=== PATIENT | male | born 1975 | race Asian ===

== ENCOUNTER 2016-12-29 16:19 | Emergency (ER) | payer MEDICAID, OTHER ==
[~2016-12-29] VITALS: Ht 177.8 cm; Wt 108.9 kg
[2016-12-29 16:19] VITALS: BP_SYST 154
[2016-12-29] MEDS ORDERED: MORPHINE 2 MG/ML INJ. SYRINGE IVP ONE ×4 (16:30→18:00)
[2016-12-29] MEDS ORDERED: NACL 0.9% 1,000 ML IV ONE (16:30)
[2016-12-29] MEDS ORDERED: DIPH-TET-PERTUS Vaccine 0.5 ML VIAL (ADACEL) I.M. ONE (18:00)
[2016-12-29] MEDS ORDERED: CLINDAMYCIN 600 mg/50mL D5W 50 ML IV ONE (18:00)
[2016-12-29] MEDS ORDERED: BACITRACIN ZINC 15 GM TOPICAL OINTMENT TP ONE (18:15)
[2016-12-29] MEDS ORDERED: BACITRACIN 1 GM OINT TP ONE (18:29)
[2016-12-29 20:17] VITALS: BP_SYST 139
== END 2016-12-29 20:17 | disposition home or self-care (01) ==
LOC: SED 16:19
DX: T21.24XA Burn of second degree of lower back, initial encounter (principal); T22.211A Burn of second degree of right forearm, initial encounter; T31.0 Burns involving less than 10% of body surface; I10 Essential (primary) hypertension; X08.8XXA Exposure to other specified smoke, fire and flames, initial encounter; Y93.89 Activity, other specified; Y92.89 Other specified places as the place of occurrence of the external cause; Y99.0 Civilian activity done for income or pay
CPT/HCPCS: 16020; 90471; 90715; 96361; 96365; 96375; 96376; 99284; J2270; J3490; J7030

== ENCOUNTER 2018-03-28 12:32 | Emergency (ER) | payer OTHER ==
[~2018-03-28] VITALS: Ht 177.8 cm; Wt 104.3 kg
[2018-03-28 12:41] VITALS: BP_SYST 122
--- NOTE | 2018-03-28 12:46 | NUR ---
Patient to ER bed 07 to gown for evaluation. Side rails up.
--- NOTE | 2018-03-28 12:50 | NUR ---
Pt brought by self, A&Ox4, pt presents to ER with R lower leg pain after he was moving some boxes, skin pink and warm, cap refill <3, VS WNL.
[2018-03-28] MEDS ORDERED: KETOROLAC TROMETHAMINE 60 MG/2 ML VIAL IM ONE (13:30)
--- NOTE | 2018-03-28 13:30 | NUR ---
Pt medicated for pain level 5/10 on R leg. Pt tolerated well; will continue to monitor.
--- NOTE | 2018-03-28 14:07 | NUR ---
patient no longer in pain. refused ice and comfort measures
--- NOTE | 2018-03-28 15:30 | NUR ---
Patient given written and verbal discharge instructions and verbalizes understanding. ER MD discussed with patient the results and treatment provided. Patient in stable condition. ID arm band removed. Rx of Motrin, Tramadol given. Patient educated on pain management and to follow up with PMD. Pain Scale 0/10. Opportunity for questions provided and answered. Medication side effect fact sheet provided. Patient was advised not to drive while taking Tramadol or drink ETOH. Patient was also advised not to drive while using a knee immobilizer.
== END 2018-03-28 15:37 | disposition home or self-care (01) ==
LOC: SED 12:32
DX: S86.911A Strain of unspecified muscle(s) and tendon(s) at lower leg level, right leg, initial encounter (principal); R03.0 Elevated blood-pressure reading, without diagnosis of hypertension; Z88.0 Allergy status to penicillin; X50.0XXA Overexertion from strenuous movement or load, initial encounter; Y93.89 Activity, other specified; Y92.89 Other specified places as the place of occurrence of the external cause; Y99.8 Other external cause status
CPT/HCPCS: 29505; 73564; 96372; 99283; J1885